=== PATIENT | female | born 1975 | race Caucasian/White ===

== ENCOUNTER 2016-10-13 06:54 | Day surgery (SDC) | payer OTHER ==
[~2016-10-13] VITALS: Ht 165.1 cm; Wt 105.0 kg
[2016-10-13] VITALS (9 sets, daily range): BP systolic 120–142; BP diastolic 77–96; PULSE 85–98; RESP 14–19; O2SAT 93–99
[~2016-10-13 06:54] MED LIST: CeFAZolin Inj 2 GM in IV Premix 1 EACH IV ONE; TAMS0.4C98 PO; ZLP10T PO; midrin PO; percocet; topamax
[2016-10-13] MEDS ORDERED: Ketamine 10 mg/mL 20 mL Inj ONE (06:55)
[2016-10-13] MEDS ORDERED: Dexamethasone 4 mg/mL Inj ONE (06:55)
[2016-10-13] MEDS ORDERED: Lidocaine PF 1% 30 mL Inj ONE (06:55)
[2016-10-13] MEDS ORDERED: fentaNYL-PF 50 mCg/mL 2 mL Inj ONE (06:55)
[2016-10-13] MEDS ORDERED: Propofol 10,000 mCg/mL 20 mL Inj ONE (06:55)
[2016-10-13] MEDS ORDERED: Ondansetron 2 mg/mL 2 mL Inj ONE (06:55)
[2016-10-13] MEDS: Lactated Ringer's 1,000 ML IV SCH ×2 (08:10→09:14)
[2016-10-13] MEDS ORDERED: Belladonna Alk-Opium 60 mg Rectal Suppository RECTAL ONE (09:25)
[2016-10-13] MEDS ORDERED: Lactated Ringer's 500 ML IV PRN (09:52)
[2016-10-13] MEDS ORDERED: Lactated Ringer's 1,000 ML IV SCH (09:52)
--- NOTE | 2016-10-13 09:52 | PCM.HPANE ---
Patient Data Date of Service: Oct 13, 2016 Surgeon Admitting Provider: Attending Provider:Pema Mo MD Primary Care Physician:Lia Rivers PA-C Other Provider:René Mcdaniels Anesthesia Reason for Visit Right Ureteral Stone Ht/WT & BMI Height (Feet): 5 Height (Inches): 5.00 Weight (Kilograms): 105.000 Body Mass Index 38.00 Allergies Coded Allergies: sulfamethoxazole (Verified Allergy, Unknown, 10/11/16) trimethoprim (Verified Allergy, Unknown, 10/11/16) Past Anesthesia History Anesthesia History: Denies:: Abnormal Airway, Anesthesia Reactions (took a little longer to wake up), Difficult Intubation, Fam Anesthesia Reaction Diabetes History Hx Diabetes?: No MRSA MRSA: No Medications Hypertension Medication: No Home Meds Incl Beta Pablo: No Reported Medications [percocet] No Conflict CheckUnknown Dose PRN For Pain 10/11/16 [topamax] No Conflict CheckUnknown Dose BID 10/11/16 [midrin] 65/100/325 No Conflict CheckUnknown Dose PO PRN PRN migraines 10/11/16 Tamsulosin (Flomax)0.4 Mg Capsule0.4 Mg PO DAILY Ref 0 10/11/16 Zolpidem (Ambien)10 Mg [id number] Mg PO HS PRN For Insomnia Ref 0 10/11/16 History History of ENT Problems?: No HEENT History: Denies:: Abnormal Airway Cataracts Difficult Intubation Dysphagia Glaucoma Hearing Problem Sinus Problem TMJ Teeth Condition: Missing Teeth Hx of Heart Problems?: No Cardiovascular History: Denies:: AICD Abdominal Aortic Aneurism Atrial Fibrillation Edema Heart Murmur Hypertension Irregular Heartbeat Pacemaker Peripheral Vascular Rheumatic Fever Hx of Respiratory Problem?: No Respiratory History: Positive for:: Pneumonia (not for last ten years) Denies:: Asthma (if ill with bronchitis) COPD Emphysema Oxygen Administration Tuberculosis Use of C-PAP Machine Use of Inhalers / NEBS Hx Neurologic Problems?: Yes Neurological History: Positive for:: Headaches (migraines) Denies:: CVA Dementia Multiple Sclerosis Parkinson's Disease Seizures TIA Hx of GI Problems?: No Gastrointestinal History: Denies:: Cirrhosis Gall Bladder Disease Gastroesphageal Reflux Gastrointestinal Bleeding Heartburn Hepatitis Hiatal Hernia Liver Disease Hx of Problems?: Yes Genitourinary History: Positive for:: Kidney Stones (right stone current admission problem) Denies:: Urinary Tract Infection (past hx of- not currently ) Female Hx: Denies:: Currently Problems with Breasts? Skin History: Denies:: History Skin Disorders? Pressure Ulcers Hx Musculoskeletal Problems?: No Musculoskeletal History: Denies:: Back Injury Fibromyalgia Joint Replacement Musculoskeletal Trauma Myasthenia Gravis Osteoarthritis Hx of Psycho/Social Problems?: No Psycho Social History: Denies:: Anxiety Hx Depression Hx Surgeries?: Yes (hyste, oopherectomy, tonsil, lymph node) Hx Any Other Health Problems?: Yes Other History: Denies:: Cancer Thyroid Disease (past hx of - no longer on meds) History Blood Transfusions: Positive for:: Accept Blood Products? Denies:: Blood Transfusions Hx Diabetes: No Hx Alcohol Use: YesAlcoholic Drinks Per Day: couple of drinks yearlyHx Substance Use: NoHave You Smoked inLast 12 mo: No Stop/Bang Treated for Sleep Apnea?: No Do You Have a CPAP Machine?: No S-Snoring: Do You Snore Loudly: Yes T-Tired: feel tired, fatigued: Yes O-Obsered: Observed not breath: No P-Blood Pressure: treated: No B- Body Mass Index > 35 kg/m2: No A- Age over 50: No N- Neck Large Circumference: No G- Gender Male: No CHRIS Risk Assessment: Low Risk, <3 Yes CHRIS Category 2: Yes Risk Assessment Category Category 1A: Patient has history of documented sleep apnea, and HAS NOT received any narcotic, sedative or anesthesia administration during this stay. Category 1B: Patient has history of documented sleep apnea, and HAS received any narcotic , sedative or anesthesia administration during this stay Category 2: Patient has SUSPECTED Obstructive Sleep Apnea, and HAS received any narcotic , sedative or anesthesia administration during this stay. Category 3: Patient has SUSPECTED Obstructive Sleep Apnea and HAS NOT received narcotic, sedative or anesthesia administration during this stay. Category 4: Outpatient in Procedural Areas with known sleep apnea or who screen positive for High Risk via the STOP/BANG questionnaire. Exam Exam Vital Signs Vital Signs Date Time Temp Pulse Resp B/P Pulse Ox O2 Delivery O2 Flow Rate FiO2 10/13/16 07:22 36.5 91 19 131/79 95 Room Air General Appearance: Oriented X3, Cooperative, No Acute Distress HEENT/AIRWAY: MP 2 Lungs: Clear to Auscultation Heart: Normal S1, Normal S2 Additional Information Obese Meds/Labs/Diagnostics Admission Meds Current Medications Lactated Ringer's (Lr) 1,000 ml @ 120 mls/hr [id number] IV Last administered on t 08:10; Start 10/13/16 at 05:00; Stop 10/13/16 at 13:19 Plan Impression Patient chart reviewed, patient interviewed and anesthestic plan with risks, benefits, and alternatives discussed, and informed consent obtained. NPO Status: 0530 WATER ASA Physical Status: ASA2 Mod Systemic Disease Anesthetic Plan: GA Bene/Risks/Altern/Consents: Yes HP Complete Prior to Induction: Yes Ugo Kemp DO Oct 13, 2016 09:52
[2016-10-13] MEDS ORDERED: Dexamethasone 4 mg/mL Inj IVPUSH PRN (09:55)
[2016-10-13] MEDS ORDERED: MetoCLOpramide 5 mg/mL 2 mL Inj IVPUSH PRN (09:55)
[2016-10-13] MEDS ORDERED: EPHEDrine Sulfate 50 mg/mL Inj IVPUSH PRN (09:55)
[2016-10-13] MEDS ORDERED: Labetalol 5 mg/mL 4 mL Inj IV PRN (09:55)
[2016-10-13] MEDS ORDERED: Atropine 0.4 mg/mL Inj IVPUSH PRN (09:55)
[2016-10-13] MEDS ORDERED: fentaNYL-PF 50 mCg/mL 2 mL Inj IVPUSH PRN (09:55)
[2016-10-13] MEDS ORDERED: Phenylephrine 10,000 mCg/mL Inj IVPUSH PRN (09:55)
[2016-10-13] MEDS ORDERED: Ondansetron 2 mg/mL 2 mL Inj IVPUSH PRN (09:55)
[2016-10-13] MEDS ORDERED: oxyCODONE-Acetamin 5-325 mg Tablet PO PRN (10:15)
--- NOTE | 2016-10-13 10:52 | OP ---
[address] [address] OPERATIVE REPORT PATIENT: CLARE NEGRO : 1975 MR#: [id number] ADMIT: 10/13/2016 JOB ID: [id number] DATE OF SURGERY: 10/13/2016 PREOPERATIVE DIAGNOSIS(ES): Right ureteral calculus. POSTOPERATIVE DIAGNOSIS(ES): Right ureteral calculus. SURGEON: Pema Mo MD PROCEDURE: Cystoscopy, ureteroscopy, stone basketing and stent insertion. ANESTHESIA: General anesthetic, Ugo Kemp DO DESCRIPTION OF PROCEDURE: Under general anesthetic, the patient was placed in the lithotomy position. Genitalia prepped and draped in a sterile manner. A 22-Moldovan cystoscope was introduced through a normal urethra. Ureteral orifices were normal in position and appearance. A 0.035 Glidewire was advanced to the level of the right renal pelvis. A balloon dilation catheter was passed over the wire and the distal ureter dilated. A 7-Moldovan semi rigid ureteroscope was then passed into the distal ureter. Stone was identified at the proximal intramural ureter. It was engaged with a nitinol tipless basket and withdrawn intact. Observation of the stone suggested that this was only a part of the stone based on size. The semi rigid ureteroscope was then advanced to the mid ureter and the stone was not visualized. A 7-Moldovan flexible ureteroscope was then passed over the wire up to the renal pelvis. All calyces were inspected. The stone was identified on withdrawal of the scope in the proximal ureter. It was engaged with a nitinol basket and withdrawn intact. Cystoscope was reintroduced and a 0.035 Glidewire advanced to the level of the right renal pelvis. Over this, a 6-Moldovan 22 cm double-J stent was passed. When the stent was confirmed to be in good position fluoroscopically, the wire was withdrawn. The patient tolerated the procedure well. A B and O suppository was given for postoperative analgesia. The patient left the operating room in good condition under light anesthesia.
[2016-10-13] MEDS: HYDROmorphone 1 mg/mL Inj IVPUSH PRN ×3 (11:01→11:23)
--- NOTE | 2016-10-13 11:34 | PCM.ANEP2 ---
Post Anesthesia Evaluation ASA/CMS Post Anesthesia VS in Patient's Normal Range?: Yes Resp Stable; Airway Patent?: Yes CV Function & Hydration Stable: Yes Mental Status Recovered?: Yes Pain control Satisfactory?: Yes N/V Control Satisfactory?: Yes Ugo Kemp DO Oct 13, 2016 11:34
--- NOTE | 2016-10-13 11:34 | PCM.ANEP1 ---
Post Anesthesia Phase 1 PACU Phase 1 Assessment Date of Service: Oct 13, 2016 Vital Signs Vital Signs Date Time Temp Pulse Resp B/P Pulse Ox O2 Delivery O2 Flow Rate FiO2 10/13/16 10:33 37 89 14 142/95 93 Room Air 10/13/16 10:29 98 17 142/96 94 Room Air 10/13/16 10:26 89 18 132/82 94 Room Air 10/13/16 10:20 91 17 135/86 98 Room Air 10/13/16 10:15 92 16 133/83 99 Simple Mask 10 10/13/16 10:10 92 14 120/81 98 Simple Mask 10 10/13/16 10:09 37.3 94 14 123/77 98 Simple Mask 10 10/13/16 07:22 36.5 91 19 131/79 95 Room Air Anesthetic Administered: GA Level of Alertness: Drowsy, not talking WHITE's with Equal Strength: Yes Pain: No Nausea or Vomiting: No Airway Device: Removed in PACU without evidence of trauma Lungs: Clear to Auscultation Dermatome Level: Full Sensation Ugo Kepm DO Oct 13, 2016 11:34
[2016-10-20 09:09] LABS: Stone Color Tan (.)
== END 2016-10-13 23:59 | disposition home or self-care (01) ==
LOC: SAS 06:54
PROVIDERS: ATTEND Urology
DX: N20.1 Calculus of ureter (principal)
CPT/HCPCS: 52320; 52332; 76000; 82360; C2617; J0690; J1100; J1170; J2250; J2405; J3010; J7120